=== PATIENT | female | born 1985 | race Caucasian/White ===

== ENCOUNTER 2016-07-14 18:36 | Inpatient (IN) | payer OTHER ==
[~2016-07-14] VITALS: Ht 172.7 cm; Wt 88.0 kg
[2016-07-14 20:17] LABS: ABSOLUTE BASOPHIL COUNT 0 /CUMM (0.0-0.2); ABSOLUTE EOSINOPHIL COUNT 0.1 /CUMM (0.0-0.7); ABSOLUTE GRANULOCYTE CT 7.8 /CUMM (1.4-6.5); ABSOLUTE LYMPH COUNT 1.7 /CUMM (1.2-3.4); ABSOLUTE MONOCYTE COUNT 0.7 /CUMM (0.10-0.60); BASOPHIL % 0.3 % (0.0-2.0); EOSINOPHIL % 0.5 % (0-5); GRANULOCYTE % 75.5 % (42.2-75.2); MEAN CORPUSCULAR HGB 27.9 PG (27.0-31.0); MEAN CORPUSCULAR HGB CONC 32.8 G/DL (33.0-37.0); MEAN CORPUSCULAR VOLUME 85.1 FL (81.0-99.0); MEAN PLATELET VOLUME 7.3 FL (7.4-10.4); PLATELET COUNT 317 /CUMM (130-400); RBC DISTRIBUTION WIDTH 14.1 % (11.5-14.5); RED BLOOD CELL CT 4.23 /CUMM (4.20-5.40); WHITE BLOOD CELL COUNT 10.4 /CUMM (4.8-10.8)
[2016-07-14 22:54] VITALS: BP 120/62
--- NOTE | 2016-07-15 12:28 | History & Physical ---
General Information and HPI MD Statement: I have seen and personally examined GORDY ZIMMERMAN and documented this H&P. The patient is a 31 year old female at [38] weeks and [5] days gestation who presented with a chief complaint of [srSROM]. 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 EENTM: Reports: no symptoms. Cardiovascular: Reports: no symptoms. Respiratory: Reports: no symptoms. GI: Reports: no symptoms. Genitourinary: Reports: no symptoms. Musculoskeletal: Reports: no symptoms. Skin: Reports: no symptoms. Neurological/Psychological: Reports: no symptoms. Hematologic/Endocrine: Reports: no symptoms. Immunologic/Allergic: Reports: no symptoms. All Other Systems: Reviewed and Negative Exam & Diagnostic Data Last 24 Hrs of Vital Signs/I&O Vital Signs Date Time Temp Pulse Resp B/P Pulse O2 O2 Flow FiO2 Ox Delivery Rate 07/14 2254 120/62 Intake & Output 07/15 1600 07/15 0800 07/15 0000 Intake Total Output Total Balance Patient 194 lb Weight Obstetric Exam Wgt Gained During : 30 Pelvimetry: GYNECOID Dilation (cm): 4 Effacement (%): 100 Station: 0 Membranes: SROM Fluid: clear Fundal Height (cm): 41 Multiple Gestation? No Contractions: OCC Infant #1 - FHR Baseline: 140 Category: 1 Estimated Weight: 9 Presentation: CEPHALIC Patient for Induction? Yes Pinto Score Pinto Score Response Value Cervix Position: anterior 2 Cervix Consistency: soft 2 Cervix Effacement: >80% 3 Cervix Dilation: 3-4 cm 2 Cervix Station: -1 2 Total 11 Physical Exam: HEENT; NCAT CHEST: CGTA CV: NL S1S2 ABD: GRAVID,CEPHALIC, 9 EXT: NO CCE Labs Blood Type & Rh: A POS Antibody Screen: NEG Hct/Hgb & Platelets #1: 38//285 Hct/Hgb & Platelets #2: 35//306 Rubella: IMM VDRL #1: NR VDRL #2: NR HbsAg: NEG HIV #1: NEG HIV #2 NEG 1 Hr P Group B Strep: NEG Initial Ultrasound: WNL Anatomy Ultrasound: WNL Ultrasound for EFW: 8 Genetic Testing: NEG Last 24 Hrs of Labs/Ant: Laboratory Tests 07/14/161944: CBC w Diff NO MAN DIFF REQ, RBC 4.23, MCV 85.1, MCH 27.9, RDW 14.1, MPV 7.3 L, Gran % 75.5 H, Lymphocytes % 16.9 L, Monocytes % 6.8, Eosinophils % 0.5, Basophils % 0.3, Absolute Granulocytes 7.8 H, Absolute Lymphocytes 1.7, Absolute Monocytes 0.7 H, Absolute Eosinophils 0.1, Absolute Basophils 0, PUBS MCHC 32.8 L Microbiology 07/15 1030 URINE ROUT: Urine Culture - RECD Assessment/Plan Assessment/Plan: TERM PRENANCY SROM PITOCIN AUGMENTATION As Ranked By This Provider Problem List: 1. Core Measures/Miscellaneous Venous Thromboembolism VTE Risk Factors: / VTE Contraindications: No Contraindications VTE Prophylaxis Ordered Inpt: Early Ambulation VTE Diagnosis: No Beta Asya Is Beta Asya a Home Med? No Antibiotics Is Patient on Antibiotics? No
--- NOTE | 2016-07-15 13:28 | Labor & Delivery Summary ---
Delivery Summary Vaginal Delivery: Vaginal: vertex Episiotomy/Lacerations: Episiotomy/Lacerations: RML Type: RML Repair: 3-0 POLY IONT Anesthesia: EPILOCAL Placenta: Placenta: spontanteous, normal, 3 vessel Anesthesia: EPILOCAL Baby's Weight: 7-10 Apgars - 1 Min: 9 Apgars - 5 Min: 9 Additional Comments: 102.3 WILL SEND PLACENTA TO PATH FOR CX
[2016-07-16 07:48] LABS: ABSOLUTE BASOPHIL COUNT 0 /CUMM (0.0-0.2); ABSOLUTE EOSINOPHIL COUNT 0.1 /CUMM (0.0-0.7); ABSOLUTE GRANULOCYTE CT 8.1 /CUMM (1.4-6.5); ABSOLUTE LYMPH COUNT 2.1 /CUMM (1.2-3.4); ABSOLUTE MONOCYTE COUNT 0.7 /CUMM (0.10-0.60); BASOPHIL % 0.3 % (0.0-2.0); GRANULOCYTE % 72.8 % (42.2-75.2); MEAN CORPUSCULAR HGB 28.3 PG (27.0-31.0); MEAN CORPUSCULAR HGB CONC 33.4 G/DL (33.0-37.0); MEAN CORPUSCULAR VOLUME 84.8 FL (81.0-99.0); MEAN PLATELET VOLUME 7.3 FL (7.4-10.4); PLATELET COUNT 244 /CUMM (130-400); RBC DISTRIBUTION WIDTH 14.4 % (11.5-14.5); RED BLOOD CELL CT 3.54 /CUMM (4.20-5.40); WHITE BLOOD CELL COUNT 11.1 /CUMM (4.8-10.8)
[2016-07-17] MEDS ORDERED: IBUPROFEN800 M1 PO (16:44)
[2016-07-17] MEDS ORDERED: DOCUSATE SODIU100 M3 PO (16:44)
== END 2016-07-17 17:35 | DRG 560 ==
LOC: CBCO 18:36 → GNO 19:31
PROVIDERS: ADMIT Obstetrics & Gynecology
PROC: 0W8NXZZ Division of Female Perineum, External Approach (ICD-10-PCS; principal; 2016-07-15)
PROC: 10E0XZZ Delivery of Products of Conception, External Approach (ICD-10-PCS; principal; 2016-07-15)
DX: O80 Encounter for full-term uncomplicated delivery (principal); Z3A.38 38 weeks gestation of pregnancy; Z37.0 Single live birth
CPT/HCPCS: 87070; GNOP; GNOS; 36415; 81003; 84112; 87086; 87147; 88307; J2270; J7120; Q2036